=== PATIENT | female | born 1995 | race Caucasian/White ===

== ENCOUNTER 2024-03-03 04:35 | Day surgery (SDC) | payer BC ==
[2024-02-25 10:54] VITALS: BMI 37.8
[2024-03-03] MEDS ORDERED: oxyCODONE HCL 5 MG TABLET PO PRN (10:47)
[2024-03-03] MEDS ORDERED: ACETAMINOPHEN 325 MG TABLET (FP) PO PRN (10:47)
[2024-03-03] MEDS ORDERED: IBUPROFEN 400 MG TABLET (FP) PO PRN (10:47)
[2024-03-03] MEDS ORDERED: PROPOFOL 20 ML ONE ×2 (13:22→13:41)
[2024-03-03] MEDS ORDERED: MIDAZOLAM HCL 2 MG/2 ML SINGLE DOSE VIAL ONE (13:22)
[2024-03-03] MEDS ORDERED: KETOROLAC TROMETHAMINE 30 MG/1 ML VIAL ONE (13:23)
[2024-03-03] MEDS ORDERED: DEXAMETHASONE SOD PHOSPHATE 4 MG/1 ML VIAL ONE (13:23)
[2024-03-03] MEDS ORDERED: LIDOCAINE HCL/PF 2% SDV 5ML VIAL ONE (13:23)
[2024-03-03] MEDS ORDERED: METOCLOPRAMIDE HCL INJECTION 10 MG/2 ML VIAL ONE (13:23)
[2024-03-03] MEDS ORDERED: ONDANSETRON 4 MG/2 ML VIAL ONE (13:23)
[2024-03-03] MEDS ORDERED: SEVOFLURANE 250 ML BTL ONE (13:25)
[2024-03-03] MEDS ORDERED: ONDANSETRON 4 MG/2 ML VIAL IVPUSH PRN (13:31)
[2024-03-03] MEDS ORDERED: LACTATED RINGERS SOLUTION 1,000 ML IV SCH (13:45)
[2024-03-03] MEDS ORDERED: ACETAMINOPHEN INJECTION 100 ML IVPB ONE (14:42)
[2024-03-03] MEDS: ACETAMINOPHEN 1000 MG/100 ML BAG IVPB ONE (14:45)
[2024-03-03 15:19] VITALS: RESP 16
[2024-03-03 16:22] VITALS: BP 129/74; PULSE 60; TEMP 97.4
== END 2024-03-03 16:15 | disposition home or self-care (01) ==
LOC: JASU-SURG 04:35
PROVIDERS: ATTEND Obstetrics & Gynecology
PROC: 0UBC8ZZ Excision of Cervix, Via Natural or Artificial Opening Endoscopic (ICD-10-PCS; principal; 2024-03-03 13:00)
DX: N84.0 Polyp of corpus uteri (principal); R93.89 Abnormal findings on diagnostic imaging of other specified body structures
CPT/HCPCS: 81025; 88305-TC; 94760; J0131